=== PATIENT | female | born 1935 | race Caucasian/White ===

== ENCOUNTER 2020-04-17 07:07 | Outpatient (RCR) | payer MEDICARE, OTHER, SELFPAY ==
[2020-04-17] MEDS: COVID-19 VACC, MRNA(PFIZER)/PF 30 MCG/0.3 ML SYRINGE IM (14:03)
[2020-05-08] MEDS: COVID-19 VACC, MRNA(PFIZER)/PF 30 MCG/0.3 ML SYRINGE IM (13:42)
== END 2020-07-22 23:59 ==
LOC: IMMUN 07:07
PROVIDERS: PCP Family Medicine; Referring Provider Family Medicine; Visit Provider Family Medicine
DX: Z23 Encounter for immunization (principal)
CPT/HCPCS: 0001A; 0002A; 91300